=== PATIENT | female | born 1950 | race Hispanic/Latino ===

== ENCOUNTER → 2017-08-11 | Outpatient (CLI) | payer MEDICAID | END | disposition home or self-care (01) | LOC: RAH 08:52 | PROVIDERS: ATTEND Family Medicine | DX: Z12.31 Encounter for screening mammogram for malignant neoplasm of breast (principal) | CPT/HCPCS: 77067 ==

== ENCOUNTER → 2018-07-27 | Outpatient (CLI) | payer MEDICARE | END | disposition home or self-care (01) | LOC: RAH 09:15 | PROVIDERS: ATTEND Family Medicine | DX: Z12.31 Encounter for screening mammogram for malignant neoplasm of breast (principal) | CPT/HCPCS: 77067 ==

== ENCOUNTER 2018-12-30 10:00 | Observation (INO) | payer OTHER, MEDICARE ==
[~2018-12-30] VITALS: Ht 160 cm; Wt 72.1 kg
[2018-12-30 09:34] VITALS: BP 138/80
[2018-12-30 09:38] LABS: APPEARANCE,URINE Clear (CLEAR); BILIRUBIN,URINE Negative (NEGATIVE); COLOR,URINE Yellow (YELLOW); GLUCOSE, URINE (UA) Negative (NEGATIVE); KETONES,URINE Negative (NEGATIVE); LEUKOCYTE ESTERASE ,URINE Large (NEGATIVE); NITRATE,URINE Negative (NEGATIVE); OCCULT BLOOD,URINE Negative (NEGATIVE); PH,URINE 6.5 (5.0-8.0); PROTEIN,URINE Negative (NEGATIVE); UROBILINOGEN,URINE 0.2 mg/dL (0.2-1.0)
[2018-12-30 09:45] LABS: CREATININE 3.1 mg/dL (0.5-1.5); POTASSIUM 3.8 mmol/L (3.5-5.1)
[2018-12-30 10:00] LABS: BACTERIA,URINE Rare /HPF (None Seen); RBC,URINE 0-1 /HPF (0-1); SQUAMOUS EPITHELIAL CELL,UR Rare /HPF (0-2)
[2018-12-30] MEDS ORDERED: FOLI1TAB15 PO (10:05)
[2018-12-30] MEDS ORDERED: RANI150T7 PO (10:05)
[2018-12-30] MEDS ORDERED: [UNRECOGNIZED DRUG - OTHER] PO (10:05)
[2018-12-30] MEDS ORDERED: LORA10TA7 PO (10:05)
[2018-12-30] MEDS ORDERED: ALLO300T2 PO (10:05)
[2018-12-30] MEDS ORDERED: LEVO100T12 PO (10:05)
[2018-12-30] MEDS ORDERED: PANT40TA25 PO (10:05)
[2018-12-30] MEDS ORDERED: VITAMIN D PO (10:05)
--- NOTE | 2018-12-30 17:27 | NUR ---
UA INFORMED DR. HUDSON OF ABNORMAL UA. ORDERS RECEIVED TO GIVE GENTAMICIN 240MG IV ON AM OF PROCEDURE.
[2019-01-02] VITALS (21 sets, daily range): BP systolic 120–178; BP diastolic 54–86
[2019-01-02] MEDS ORDERED: GENTAMICIN SULFATE 240 MG in SODIUM CHLORIDE 0.9% 100 ML IV SCH (07:00)
[2019-01-02] MEDS: CEFAZOLIN SODIUM 1 GM VIAL IVP SCH ×3 (07:00→17:18)
[2019-01-02] MEDS ORDERED: SODIUM CHLORIDE 0.9% 1000ML 1,000 ML IV ONE (07:21)
--- NOTE | 2019-01-02 07:50 | NUR ---
POTENTIAL FOR INFECTION: NO SHAVING NEEDED RO RIGHT KNEE / LEG ASSESSED PER JOVANNY VILLANUEVA. WIPED WITH ESHA: 2% CHLORHEXIDINE GLUCONATE CLOTH PATIENTS PRE-OP SKIN PREP PER JOVANNY VILLANUEVA.
[2019-01-02] MEDS ORDERED: TRANEXAMIC ACID 1000MG/10ML IV ONE ×2 (08:35→12:42)
[2019-01-02] MEDS ORDERED: CEFAZOLIN SODIUM 1 GM VIAL ONE (08:35)
[2019-01-02] MEDS ORDERED: PROPOFOL 10 MG/ML 20ML VIAL IV ONE (08:41)
[2019-01-02] MEDS ORDERED: GLYCOPYRROLATE 1 MG/5 ML SYRINGE ONE (08:41)
[2019-01-02] MEDS ORDERED: MIDAZOLAM HCL 1 MG/ML 2ML VIAL ONE (08:41)
[2019-01-02] MEDS ORDERED: ROCURONIUM 10MG/1ML SYR 10 MG/ML ML ONE ×2 (08:41→11:03)
[2019-01-02] MEDS ORDERED: NEOSTIGMINE 5MG/5ML SYR IV ONE (08:41)
[2019-01-02] MEDS ORDERED: LIDOCAINE PF 2% 5ML ABBOJECT ONE (08:41)
[2019-01-02] MEDS ORDERED: ROPIVACAINE 0.5% 5MG/ML 30ML IJ ONE ×2 (08:41→08:51)
[2019-01-02] MEDS ORDERED: FENTANYL CITRATE PF 50 MCG/1 ML 2ML VIAL ONE ×2 (08:42→11:36)
[2019-01-02] MEDS ORDERED: SUCCINYLCHOLINE 200MG/10ML SYR ONE (08:45)
[2019-01-02] MEDS ORDERED: PHENYLEPHRINE HCL 10 MG/ML 1ML VIAL IV ONE (08:55)
[2019-01-02] MEDS ORDERED: METOCLOPRAMIDE 10 MG/2 ML VIAL ONE (09:10)
[2019-01-02] MEDS ORDERED: OXYCODONE HCL 10 MG TAB.SR.12H PO ONE (09:11)
[2019-01-02] MEDS ORDERED: ACETAMINOPHEN EXTRA STRENGTH 500 MG TABLET ONE (09:11)
[2019-01-02] MEDS ORDERED: CEFAZOLIN SODIUM 1 GM VIAL IRRIG ONE (11:17)
[2019-01-02] MEDS ORDERED: DEXAMETHASONE SOD PHOSPHATE 4 MG/ML 1ML VIAL ONE (12:21)
[2019-01-02] MEDS ORDERED: ONDANSETRON HCL 4 MG/2 ML VIAL ONE (12:22)
[2019-01-02] MEDS ORDERED: POTASSIUM CHLORIDE 20MEQ/100ML 100 ML IV PRN (12:30)
[2019-01-02] MEDS ORDERED: POTASSIUM CHLORIDE 20 MEQ ERTAB PO PRN (12:30)
[2019-01-02] MEDS ORDERED: LIDOCAINE HCL-MPF 1% 2ML VIAL IVP PRN (12:30)
[2019-01-02] MEDS ORDERED: CALCIUM CARBONATE 500 MG TABLET PO PRN (12:30)
[2019-01-02] MEDS: ACETAMINOPHEN EXTRA STRENGTH 500 MG TABLET PO SCH ×2 (12:30→20:59)
[2019-01-02] MEDS ORDERED: DiphenhydrAMINE HCL 50 MG/ML VIAL IVP PRN (12:30)
[2019-01-02] MEDS ORDERED: TEMAZEPAM 15 MG CAPSULE PO PRN (12:30)
[2019-01-02] MEDS ORDERED: ONDANSETRON HCL 4 MG/2 ML VIAL IVP PRN (12:30)
[2019-01-02] MEDS ORDERED: FERROUS FUMARATE 324 MG TABLET PO PRN (12:30)
[2019-01-02] MEDS ORDERED: TRAMADOL HCL 50 MG TABLET PO PRN (12:30)
[2019-01-02] MEDS ORDERED: POTASSIUM CHLORIDE 10% ELIXIR 20 MEQ/15 ML UDCUP PO PRN (12:30)
[2019-01-02] MEDS ORDERED: HYDRALAZINE HCL 20 MG/ML VIAL ONE (13:24)
[2019-01-02] MEDS: OXYCODONE HCL 5 MG TAB PO PRN ×2 (15:33→20:53)
--- NOTE | 2019-01-02 16:30 | NUR ---
INITIAL/ REFERRAL MET W PT AND DAUGHTER S/P TKA PT LIVES ALONE, HAS DME, IS SEMI INDP OF ADLS, NO PROVIDER. PT HAS TWO DAUGHTER THAT WILL STAY WITH HER ALTERNATELY CONSENT [facility] FOR [facility]. [facility] FAXED. Addendum: 01/03/19 at 1948 by SERGIO FRANKS RN CM Amended: Links added.
--- NOTE | 2019-01-02 16:56 | NUR ---
DR. HUDSON CALLED PT DENIES BEING DIABETIC , HOWEVER ON DR. ANDRADE'S HX IT STATES SHE IS DIABETIC NO ORDERS FOR SUGAR CHECKS
--- NOTE | 2019-01-02 17:08 | NUR ---
dr. thao stated pt is not diabetic and to scratch it from the pt's history and physical no form no sugar checks needed
[2019-01-02] MEDS: CITRIC ACID/SODIUM CITRATE 30 ML UDCUP PO SCH ×2 (17:19→21:02)
[2019-01-02] MEDS: PREGABALIN 25 MG CAP PO SCH (20:58)
[2019-01-02] MEDS: ASPIRIN 325 MG TABLET PO SCH (20:58)
[2019-01-02] MEDS: SODIUM CHLORIDE 0.9% 1000ML 1,000 ML IV SCH ×2 (20:59→22:25)
[2019-01-02] MEDS: RANITIDINE HCL 15 MG/1 ML PO SCH (21:02)
--- NOTE | 2019-01-02 23:30 | NUR ---
PAIN PATIENT HAVING PAIN TO RIGHT KNEE POST PO MEDS. DR HUDSON MADE AWARE NEW ORDER FOR DILAUDID RADIOLOGY SPECIAL PROCEDURE TECH GIVEN.
[2019-01-02] MEDS ORDERED: HYDROMORPHONE PCA 10 MG/50 ML 50 ML IV PRN (23:45)
[2019-01-02] MEDS ORDERED: PROMETHAZINE HCL 25 MG/ML 1ML AMPULE IM PRN (23:45)
[2019-01-02] MEDS ORDERED: METOCLOPRAMIDE 10 MG/2 ML VIAL IV PRN (23:45)
[2019-01-02] MEDS ORDERED: NALOXONE HCL 0.4 MG/1 ML ML IVP PRN (23:45)
[2019-01-03] MEDS: OXYCODONE HCL 5 MG TAB PO PRN ×5 (00:23→20:50)
[2019-01-03] MEDS: CEFAZOLIN SODIUM 1 GM VIAL IVP SCH (00:23)
--- NOTE | 2019-01-03 00:45 | NUR ---
MORTGAGE LOAN COUNSELOR UNABLE TO FIND DILAUDID MORTGAGE LOAN COUNSELOR CARTRIDGE IN HOSPITAL THE ONLY ONE FOUND WAS AND UNABLE TO USE BUT ON REASSESSMENT OF PATIENT PAIN SHE WAS 0 OUT OF 10 POST PO MED AT THIS TIME. WILL FOLLOW UP WITH PHARMACY IN AM FOR CARTRIDGE.
[2019-01-03 03:20] VITALS: BP 139/59
[2019-01-03] MEDS: ACETAMINOPHEN EXTRA STRENGTH 500 MG TABLET PO SCH ×3 (04:31→20:51)
[2019-01-03 04:46] LABS: MEAN CORPUSCULAR HEMOGLOBIN 30.7 pg (27.0-33.0); MEAN CORPUSCULAR HGB CONC 33.1 g/dL (32.0-36.0); MEAN CORPUSCULAR VOLUME 92.8 fL (79-99); PLATELET COUNT (AUTO) 184 K/uL (130-400); RED BLOOD CELL COUNT(AUTO) 3.56 MIL/uL (4.00-5.50); RED CELL DISTRIBUTION WIDTH 15.7 % (11.0-15.5); WHITE BLOOD COUNT (AUTO) 8.9 K/uL (4.8-10.8)
[2019-01-03 05:05] LABS: POTASSIUM 3.7 mmol/L (3.5-5.1)
[2019-01-03] MEDS: LEVOTHYROXINE 100 MCG TABLET PO SCH (05:42)
[2019-01-03 07:34] VITALS: BP 129/67
[2019-01-03] MEDS: SODIUM CHLORIDE 0.9% 1000ML 1,000 ML IV SCH (08:25)
[2019-01-03] MEDS: CEFTAZIDIME PENTAHYDRATE 1 GM/VIAL IVP SCH ×3 (08:45→23:51)
[2019-01-03] MEDS: CITRIC ACID/SODIUM CITRATE 30 ML UDCUP PO SCH ×4 (09:00→20:51)
[2019-01-03] MEDS: LORATADINE 10 MG TABLET PO SCH (09:02)
[2019-01-03] MEDS: ASPIRIN 325 MG TABLET PO SCH ×2 (09:02→20:51)
[2019-01-03] MEDS: ALLOPURINOL 300 MG TABLET PO SCH (09:02)
[2019-01-03] MEDS: FOLIC ACID 1 MG TABLET PO SCH (09:02)
[2019-01-03] MEDS: PANTOPRAZOLE SODIUM 40 MG TABLET.DR PO SCH (09:02)
[2019-01-03] MEDS: PREGABALIN 25 MG CAP PO SCH ×2 (09:02→20:51)
[2019-01-03] MEDS: RANITIDINE HCL 15 MG/1 ML PO SCH ×2 (09:03→20:51)
[2019-01-03] MEDS: POLYETHYLENE GLYCOL 3350 17 GM POWD.PACK PO SCH (09:03)
[2019-01-03 11:10] VITALS: BP 137/68
[2019-01-03 15:50] VITALS: BP 136/53
[2019-01-03 19:25] VITALS: BP 132/70
--- NOTE | 2019-01-03 19:48 | NUR ---
ALL SET UP FOR [facility] Addendum: 01/03/19 at 1950 by SERGIO FRANKS RN CM Amended: Links added.
[2019-01-03 23:40] VITALS: BP 129/64
[2019-01-04 03:15] VITALS: BP 112/55
[2019-01-04] MEDS: ACETAMINOPHEN EXTRA STRENGTH 500 MG TABLET PO SCH ×2 (04:28→12:30)
[2019-01-04 05:27] LABS: BASOPHILS % (AUTO) 0.3 % (0.0-5.0); HEMATOCRIT 29.9 % (36-48); LYMPHOCYTES % (AUTO) 19.2 % (21.0-51.0); MEAN CORPUSCULAR HEMOGLOBIN 31.4 pg (27.0-33.0); MEAN CORPUSCULAR HGB CONC 33.6 g/dL (32.0-36.0); MEAN CORPUSCULAR VOLUME 93.5 fL (79-99); MONOCYTES % (AUTO) 10.3 % (3.0-13.0); NEUTROPHILS % (AUTO) 69.2 % (40.0-77.0); NUCLEATED RED BLOOD CELLS 0.1 % (0.0-0.19); PLATELET COUNT (AUTO) 143 K/uL (130-400)
[2019-01-04 05:39] LABS: ALBUMIN 2.6 g/dL (3.5-5.0); BILIRUBIN,TOTAL 0.4 mg/dL (0.2-1.0); CREATININE 3.2 mg/dL (0.5-1.5); POTASSIUM 3.6 mmol/L (3.5-5.1); TOTAL PROTEIN, SERUM 6.2 g/dL (6.0-8.3)
[2019-01-04] MEDS: LEVOTHYROXINE 100 MCG TABLET PO SCH (05:45)
[2019-01-04 05:46] LABS: APPEARANCE,URINE Clear (CLEAR); BILIRUBIN,URINE Negative (NEGATIVE); COLOR,URINE Yellow (YELLOW); GLUCOSE, URINE (UA) Negative (NEGATIVE); KETONES,URINE Negative (NEGATIVE); LEUKOCYTE ESTERASE ,URINE Moderate (NEGATIVE); NITRATE,URINE Negative (NEGATIVE); OCCULT BLOOD,URINE Trace (NEGATIVE); PH,URINE 6.5 (5.0-8.0); PROTEIN,URINE Negative (NEGATIVE); UROBILINOGEN,URINE 0.2 mg/dL (0.2-1.0)
[2019-01-04 05:51] LABS: BACTERIA,URINE None Seen /HPF (None Seen); RBC,URINE None Seen /HPF (0-1); SQUAMOUS EPITHELIAL CELL,UR Rare /HPF (0-2)
[2019-01-04] MEDS: OXYCODONE HCL 5 MG TAB PO PRN (06:14)
[2019-01-04 08:00] VITALS: BP 130/69
[2019-01-04] MEDS: CEFTAZIDIME PENTAHYDRATE 1 GM/VIAL IVP SCH ×2 (08:33→16:12)
[2019-01-04] MEDS: POLYETHYLENE GLYCOL 3350 17 GM POWD.PACK PO SCH (08:34)
[2019-01-04] MEDS: ALLOPURINOL 300 MG TABLET PO SCH (08:34)
[2019-01-04] MEDS: ASPIRIN 325 MG TABLET PO SCH (08:35)
[2019-01-04] MEDS: LORATADINE 10 MG TABLET PO SCH (08:35)
[2019-01-04] MEDS: FOLIC ACID 1 MG TABLET PO SCH (08:35)
[2019-01-04] MEDS: PANTOPRAZOLE SODIUM 40 MG TABLET.DR PO SCH (08:35)
[2019-01-04] MEDS: PREGABALIN 25 MG CAP PO SCH (08:36)
[2019-01-04] MEDS: RANITIDINE HCL 15 MG/1 ML PO SCH (08:36)
[2019-01-04] MEDS: CITRIC ACID/SODIUM CITRATE 30 ML UDCUP PO SCH ×3 (08:37→16:19)
[2019-01-04 11:11] VITALS: BP 110/67
[2019-01-04] MEDS ORDERED: ASPI-1012 PO (12:57)
[2019-01-04] MEDS ORDERED: HYDR-4457 PO (12:57)
--- NOTE | 2019-01-04 15:55 | NUR ---
DISCHARGE INSTRUCTIONS DISCUSSED WITH PATIENT AND DAUGHTER DISCHARGED TO HOME WITH HOME HEALTH. REPORT WAS CALLED TO LILIANA WARREN RN. DISCUSSED WITH PATIENT TOTAL KNEE REPLACEMENT, SURGICAL SITE INFECTIONS, HOME DIET, CONTINUING HOME MEDS, PRESCRIPTION MEDS PURPOSE, DOSE, ROUTE, FREQUENCY, DURATION, SIDE EFFECTS AND TIME NEXT DOSE IS DUE OR MAY BE GIVEN, DRESSING CHANGES, WEARING DK HOSE FROM SUN UP TO SUN DOWN, PHYSICAL THERAPY AND EXERCISES. PATIENT WAS INSTRUCTED TO FOLLOW UP WITH DR. HUDSON SCHEDULED SCHEDULED OR SOONER IF ANY CONCERNS. PATIENT AND DAUGHTER WAS INSTRUCTED TO CALL MD OFFICE WITH ANY QUESTIONS OR CONCERNS, VISIT THE EMERGENCY ROOM OR CALL 911 FOR CHEST PAIN OR SHORTNESS OF BREATH. DISCHARGE INSTRUCTIONS DISCUSSED UTILIZING TEACHBACK WITH SUCCESSFUL INFORMATION OBTAINED FROM PATIENT AND DAUGHTER.
--- NOTE | 2019-01-04 17:33 | NUR ---
[facility] CALL MADE TO [facility] RE: ROSY CERON TO BE DELIVERED Addendum: 01/05/19 at 1738 by SERGIO FRANKS RN CM Amended: Links added.
--- NOTE | 2019-01-04 17:55 | NUR ---
TIME FOR DISCHARGE NOTED SHOULD READ 6633 NOT [id number]
--- NOTE | 2019-01-04 18:00 | NUR ---
URINE ANALYSIS REPORT AND CULTURE GIVEN TO PATIENT FOR FOLLOW UP WITH PRIMARY ORDERED
[2019-01-05] MEDS ORDERED: BISACODYL 10 MG SUPP.RECT RC PRN (12:30)
[2019-01-09] MEDS ORDERED: VITAMIN D 1.25 MG PO SCH (09:00)
== END 2019-01-04 18:33 | disposition home health service (06) ==
LOC: EDSTATUS 10:00 → DAHIP 01-02 06:50 → OBSVTOIN 01-02 06:50 → INTOOBSV 01-02 06:50 → 4AH 01-02 13:39
PROVIDERS: ADMIT Orthopaedic Surgery; ATTEND Orthopaedic Surgery
DX: M17.11 Unilateral primary osteoarthritis, right knee (principal); I12.9 Hypertensive chronic kidney disease with stage 1 through stage 4 chronic kidney disease, or unspecified chronic kidney disease; N18.9 Chronic kidney disease, unspecified; A41.9 Sepsis, unspecified organism; D64.9 Anemia, unspecified; E87.5 Hyperkalemia; J18.9 Pneumonia, unspecified organism; N39.0 Urinary tract infection, site not specified; Z96.652 Presence of left artificial knee joint; Z87.440 Personal history of urinary (tract) infections; Z87.442 Personal history of urinary calculi; Z79.899 Other long term (current) drug therapy
CPT/HCPCS: 27447; 36415 ×3; 80048 ×2; 80053; 81001 ×2; 82948 ×2; 85025; 85027; 87077; 87088; 87186; 87641; 88304; 88311; 96365; 96367; 96375 ×2; 96376 ×2; 97039; 97116 ×4; 97161; 97530 ×4; A4649 ×6; A4930; A6219; C1763; C1776; G0168; G0378 ×49; G8978; G8979; G8980; G8981; G8982; G8983; J0330; J0360; J0690 ×5; J0713 ×5; J1100; J1170 ×2; J1580; J2001; J2250; J2370; J2405 ×2; J2704; J2710; J2765; J2795 ×2; J3010 ×2; J3490 ×3; J7030; J7120

== ENCOUNTER 2019-02-16 13:41 | Day surgery (SDC) | payer OTHER, MEDICARE ==
[~2019-02-16 13:41] MED LIST: ALLO300T2 PO; ASPI-1012 PO; FOLI1TAB15 PO; HYDR-4457 PO; LEVO100T12 PO; LORA10TA7 PO; PANT40TA25 PO; RANI150T7 PO; VITAMIN D PO; [UNRECOGNIZED DRUG - OTHER] PO
[2019-02-16 14:15] VITALS: BP 126/67
[2019-02-16 15:00] LABS: INR 0.95 (0.85-1.15)
== END 2019-02-16 16:40 | disposition home or self-care (01) ==
LOC: DAH 13:41
PROVIDERS: ATTEND Family Medicine
DX: Z45.2 Encounter for adjustment and management of vascular access device (principal); I87.8 Other specified disorders of veins; N39.0 Urinary tract infection, site not specified; I12.9 Hypertensive chronic kidney disease with stage 1 through stage 4 chronic kidney disease, or unspecified chronic kidney disease; N18.4 Chronic kidney disease, stage 4 (severe); E03.9 Hypothyroidism, unspecified; E78.49 Other hyperlipidemia; Z79.899 Other long term (current) drug therapy
CPT/HCPCS: 36415; 36573; 71045; 76937; 85610; C1894; 36569

== ENCOUNTER → 2019-07-28 | Outpatient (CLI) | payer OTHER, MEDICARE | END | disposition home or self-care (01) | LOC: RAH 08:48 | PROVIDERS: ATTEND Family Medicine | DX: Z12.31 Encounter for screening mammogram for malignant neoplasm of breast (principal) | CPT/HCPCS: 77067 ==

== ENCOUNTER → 2019-11-06 | Outpatient (CLI) | payer OTHER, MEDICARE | END | disposition home or self-care (01) | LOC: OIH 13:36 | PROVIDERS: ATTEND Family Medicine | DX: M81.0 Age-related osteoporosis without current pathological fracture (principal); M25.561 Pain in right knee | CPT/HCPCS: 73562 ==

== ENCOUNTER → 2020-05-23 | Outpatient (CLI) | payer OTHER, MEDICARE ==
[~2020-05-23] MED LIST changes: -PANT40TA25 PO; +PANT40TA54 PO
== END | disposition home or self-care (01) ==
LOC: RAH 07:58
PROVIDERS: ATTEND Urology
DX: N28.1 Cyst of kidney, acquired (principal); K57.30 Diverticulosis of large intestine without perforation or abscess without bleeding; N85.8 Other specified noninflammatory disorders of uterus; M43.17 Spondylolisthesis, lumbosacral region; D18.09 Hemangioma of other sites; I70.90 Unspecified atherosclerosis; N39.0 Urinary tract infection, site not specified
CPT/HCPCS: 74176

== ENCOUNTER → 2020-07-29 | Outpatient (CLI) | payer OTHER, MEDICARE | END | disposition home or self-care (01) | LOC: RAH 07:49 | PROVIDERS: ATTEND Family Medicine | DX: Z12.39 Encounter for other screening for malignant neoplasm of breast (principal); R92.2 Inconclusive mammogram | CPT/HCPCS: 77067 ==

== ENCOUNTER → 2020-11-15 | Outpatient (CLI) | payer OTHER, MEDICARE | END | disposition home or self-care (01) | LOC: RAH 15:22 | PROVIDERS: ATTEND Family Medicine | DX: S92.352A Displaced fracture of fifth metatarsal bone, left foot, initial encounter for closed fracture (principal); M25.572 Pain in left ankle and joints of left foot; M19.072 Primary osteoarthritis, left ankle and foot; M85.80 Other specified disorders of bone density and structure, unspecified site; X58.XXXA Exposure to other specified factors, initial encounter; Y93.89 Activity, other specified; Y92.89 Other specified places as the place of occurrence of the external cause; Y99.8 Other external cause status | CPT/HCPCS: 73630 ==

== ENCOUNTER → 2022-08-13 | Outpatient (CLI) | payer OTHER, MEDICARE | END | disposition home or self-care (01) | LOC: RAH 09:06 | PROVIDERS: ATTEND Family Medicine | DX: Z12.31 Encounter for screening mammogram for malignant neoplasm of breast (principal) | CPT/HCPCS: 77067 ==

== ENCOUNTER → 2022-09-08 | Outpatient (CLI) | payer OTHER, MEDICARE | END | disposition home or self-care (01) | LOC: RAH 13:42 | PROVIDERS: ATTEND Family Medicine | DX: N60.01 Solitary cyst of right breast (principal); R92.1 Mammographic calcification found on diagnostic imaging of breast; R92.8 Other abnormal and inconclusive findings on diagnostic imaging of breast | CPT/HCPCS: 76641; 77065 ==

== ENCOUNTER → 2022-10-06 | Outpatient (CLI) | payer OTHER, MEDICARE | END | disposition home or self-care (01) | LOC: RAH 11:56 | PROVIDERS: ATTEND Urology | DX: N28.1 Cyst of kidney, acquired (principal); N26.1 Atrophy of kidney (terminal); N20.0 Calculus of kidney | CPT/HCPCS: 74176 ==

== ENCOUNTER → 2024-10-05 | Outpatient (CLI) | payer OTHER, MEDICARE ==
--- NOTE | 2024-10-05 09:52 | HMCIMG ---
MAMMO SCREENING BILATERAL HISTORY: Screening mammogram. COMPARISON: 09/08/2022 TECHNIQUE: Bilateral screening mammogram with CAD was performed with craniocaudal and mediolateral oblique projections. FINDINGS: The breasts are extremely dense which lowers the sensitivity of mammogram. Scattered microcalcifications are seen in both breasts suggestive of sclerosing adenosis. Due to dense breasts and nodular appearance, MRI may be performed for complete evaluation. There is no evidence of a dominant mass, or suspicious microcalcification. There is no evidence of nipple retraction or skin thickening. IMPRESSION: 1. Stable mammogram. Dense breasts with diffuse scattered microcalcifications unchanged. Patient was entered into a reminder system with a target due date for their next mammogram. BI-RADS: CATEGORY 2: BENIGN FINDINGS Recommend monthly self breast exam as well as annual clinical examination. A negative x-ray should not delay biopsy if a dominant or clinically suspicious mass is present, since 8-10% of cancers are not identified by mammography. Dense breasts particularly, may obscure an underlying neoplasm. Some of these may be detected clinically and therefore, clinical examination is an essential part of breast evaluation.
== END | disposition home or self-care (01) ==
LOC: RAH 07:49
PROVIDERS: ATTEND Family Medicine
DX: Z12.31 Encounter for screening mammogram for malignant neoplasm of breast (principal); R92.30 Dense breasts, unspecified
CPT/HCPCS: 77067